=== PATIENT | female | born 1985 | race Caucasian/White ===

== ENCOUNTER 2017-12-13 03:57 | Inpatient (IN) | payer BC, MEDICAID ==
[2017-12-13] MEDS ORDERED: Sodium Citrate/Citric Acid* 15 ML UDC PO ONE (04:41)
[2017-12-13] MEDS ORDERED: ceFOXitin 2 GM IVPREMIX* 2 GM/50 ML BAG IVPB ONE (04:41)
[2017-12-13] MEDS ORDERED: fentaNYL* 50 MCG/ML 2 ML VIAL (100 MCG VIAL) ONE (05:17)
[2017-12-13] MEDS ORDERED: KETAMINE HCL* 50 MG/ML 10 ML VIAL ONE (05:17)
[2017-12-13] MEDS ORDERED: Midazolam* 1 MG/ML 5 ML VIAL (5 MG) ONE (05:17)
[2017-12-13] MEDS ORDERED: Morphine PF AMP (0.5MG/ML)* 5 MG/10 ML AMP ONE (05:18)
[2017-12-13 05:31] LABS: ABS Neutrophils 7.6 10^3/ul (1.5-7.7); Hematocrit 37 % (35-47); Mean Corpuscular HGB Conc 33 g/dl (31-36); Mean Corpuscular Hemoglobin 24 pg (27-31); Mean Corpuscular Volume 73 fL (80-97); Mean Platelet Volume 7.7 um3 (7.4-10.4); Platelet Count 212 10^3/ul (150-450); Red Blood Count 5.07 10^6/ul (4.00-5.40); Red Cell Distribution Width 16 % (10.5-15)
[2017-12-13 05:38] LABS: ABS Basophils 0 10^3/ul (0-0.2); ABS Eosinophils 0.1 10^3/ul (0-0.6); ABS Lymphocytes 1.7 10^3/ul (1.0-4.8); ABS Monocytes 0.5 10^3/ul (0-0.8); ABS Nucleated RBC 0 10^3/ul; Eosinophil % 0.8 % (0-6); Lymphocyte % 17.1 % (25-47); Nucleated Red Blood Cells % 0.1
[2017-12-13] MEDS ORDERED: Scopolamine 1.5 mg* PATCH TRANSDERM PRN (05:51)
[2017-12-13] MEDS ORDERED: Ondansetron INJ* 2 MG/ML VIAL IV PRN (05:51)
[2017-12-13] MEDS ORDERED: PROCHLORPERAZINE INJ 5 MG/ML 2 ML VIAL IV PRN (05:51)
[2017-12-13] MEDS ORDERED: Naloxone* 0.4 MG/ML 1 ML VIAL IV PRN ×2 (05:51→05:52)
[2017-12-13] MEDS ORDERED: oxyCODONE/Acetamin 5/325 MG* TAB PO PRN ×2 (05:51→07:27)
[2017-12-13] MEDS ORDERED: Nalbuphine* 10 MG/ML 1 ML VIAL IV PRN (05:51)
[2017-12-13] MEDS ORDERED: diPHENhydraMINE IV* 50 MG/ML 1 ml VIAL (BENADRYL) IV PRN (05:51)
[2017-12-13] MEDS ORDERED: DiMENhydriNATE IV* 50 MG/ML VIAL IV PUSH PRN (05:51)
[2017-12-13] MEDS ORDERED: Naloxone* 2 MG in NS 0.9% 250 ML* 250 ML IV PRN (05:51)
[2017-12-13] MEDS ORDERED: fentaNYL* 50 MCG/ML 2 ML VIAL (100 MCG VIAL) IV PRN (05:52)
--- NOTE | 2017-12-13 05:52 | HP ---
General Information - Reason for Visit Pt started having contractions around midnight, now every 3min, getting stronger. No LOF or bleeding. Good FM - General Information Maternal Age: 32 Grav: 3 Para: 1 SAB: 1 IEA: 0 Estimated Due Date: 12/22/17 Determined By: Early Ultrasound Maternal Blood Type and Rh: O Positive - Results this Serology/RPR Result: Non-Reactive Rubella Result: Non-Immune HBsAg Result: Negative HIV Result: Negative GBS Culture Result: Positive Past Medical History Delivery History: Hx C/Section Pertinent Past Medical History: See Records Pertinent Past Surgical History: See Records Pertinent Family History: Non-Contributory - Antepartal Records Antepartal Records: Reviewed, Complicated by: - hyperthyroidism - well controlled Review of Systems Constitutional: Uncomfortable CV Complaint: No Respiratory: Shortness of Breath: No Gastrointestinal: No Nausea/Vomiting Genitourinary: No Dysuria, No Bleeding, No Leaking Fluid Musculoskeletal: Contractions Movement: Normal Exam Allergies/Adverse Reactions: Allergies Penicillins Allergy (Unknown, Verified 12/13/17 05:11) Rash codeine Adverse Reaction (Unknown, Verified 12/13/17 05:11) Nausea Lab Values - Entire Visit: Laboratory Tests 12/13/17 12/13/17 04:55 04:55 WBC 10.0 RBC 5.07 Hgb 12.0 Hct 37 MCV 73 L MCH 24 L MCHC 33 RDW 16 H Plt Count 212 MPV 7.7 Neut % (Auto) 76.4 Lymph % (Auto) 17.1 L Sac % (Auto) 5.4 Eos % (Auto) 0.8 Baso % (Auto) 0.3 Absolute Neuts (auto) 7.6 Absolute Lymphs (auto) 1.7 Absolute Monos (auto) 0.5 Absolute Eos (auto) 0.1 Absolute Basos (auto) 0 Absolute Nucleated RBC 0 Nucleated RBC % 0.1 Blood Type O Positive - Measurements Height: 5 ft 7 in Weight: 187 lb Weight in lbs: 187.125129 Body Mass Index (BMI): 29.2 Pre- Weight: 143 lb Weight Gained This : 44 lbs and 0 ozs - Exam Breast: Breast Exam Deferred Heart: Normal Rhythm/Heart Sounds HEENT: No Significant Findings - Abdominal Exam Abdomen Exam: Non-Tender - Ultrasound/Biophysical Profile Ultrasound Status: Not Done Targeted Exam Findings Cervical Exam: 3cm Effacement: 90% Station: -2 Presenting Part: Vertex Membrane Status: Intact EFM Findings - External Monitor Findings Baseline Heart Rate: 140 External Monitor Findings: Accelerations Present, No Pattern of Variable or Late Decelerations, Variability Moderate, Baseline Stable Contractions: Regular - q3-4min Assessment/Plan - Assessment @38.5wks with 2 prior CS, in labor, desires RCS. - Obstetrical Risk Factors Obstetrical Risk Factors: GBS Positive, Previous C/Section in Labor - Plan Plan: C/S Delivery
[2017-12-13] MEDS ORDERED: Scopolamine 1.5 mg* PATCH ONE (06:05)
[2017-12-13] MEDS ORDERED: Bupivacaine-MPF SPINAL* 7.5 MG/ML - 2ML AMP ONE (06:13)
[2017-12-13] MEDS ORDERED: Dexamethasone IV* 4 MG/ML 1 ML (4 MG) ONE (06:13)
[2017-12-13] MEDS ORDERED: OXYTOCIN* 10 UNITS/ML 1 ML VIAL ONE (06:13)
[2017-12-13] MEDS ORDERED: Bupivacaine 0.25% SDV PF* 10 ML VIAL INJ ONE (06:13)
[2017-12-13] MEDS ORDERED: Phenylephrine INJ* 10 MG/ML 1 ML VIAL (10 MG) ONE (06:13)
[2017-12-13] MEDS ORDERED: Ondansetron INJ* 2 MG/ML VIAL ONE (06:13)
[2017-12-13] MEDS ORDERED: EPHEDrine (Pressors)* 50 MG/ML VIAL ONE (06:13)
[2017-12-13] MEDS ORDERED: Glycerin ADULT SUPP PR PRN (07:27)
[2017-12-13] MEDS ORDERED: Zolpidem TAB* 5 MG PO PRN (07:27)
[2017-12-13] MEDS ORDERED: Witch Hazel PAD* JAR TOPICAL PRN (07:27)
[2017-12-13] MEDS ORDERED: Dibucaine 1% 28.35 GM TUBE PR PRN (07:27)
[2017-12-13] MEDS: Simethicone TAB* 80 MG TAB.CHEW PO SCH ×3 (08:22→20:52)
[2017-12-13] MEDS: Docusate CAP* 100 MG PO SCH ×3 (08:22→20:52)
[2017-12-13] MEDS: Ibuprofen TAB* 600 MG PO PRN ×2 (14:19→20:52)
--- NOTE | 2017-12-13 23:33 | OP ---
DATE OF OPERATION: 12/13/17 - ROOM #102 DATE OF : 83 SURGEON: Jennifer Oconnor MD ELEMENTARY MATH TUTOR: Dr. Stevenson. PRE-OP DIAGNOSES: Intrauterine gestation at 38 and 5 weeks' gestational age, labor, prior section x2. POST-OP DIAGNOSES: Intrauterine gestation at 38 and 5 weeks' gestational age, labor, prior section x2. OPERATIVE PROCEDURE: Repeat lower transverse section. FINDINGS: Male infant, weight 6 pounds 12 ounces, Apgars 8 and 9. Normal- appearing uterus, ovaries, and tubes. Normal-appearing placenta. ESTIMATED BLOOD LOSS: 700. FLUIDS: Crystalloid. DRAINS: Tran catheter. COUNTS: All correct. DESCRIPTION OF PROCEDURE: After informed consent was signed, the patient was taken to the operating room where she was given spinal anesthesia that was found to be adequate. SCDs were placed on her legs and a Tran catheter was introduced into her bladder. The patient was prepped and draped in a dorsal supine position with a leftward tilt. A time-out was then performed. A Pfannenstiel skin incision was made with a scalpel and carried down to the underlying layer of fascia with the Cueva scissors. The fascia was incised on either side of the midline with the scalpel and the incision extended laterally with Cueva scissors. The inferior edge of the fascial incision was grasped with Porsha clamps, tented up, and dissected down with sharp dissection. Then, the superior edge of the fascial incision was grasped with Porsha clamps, tented up , and dissected down with sharp dissection and the scalpel was used to make an incision in the fat and scar tissue between the rectus muscles. This was then entered bluntly and then incision extended laterally with sharp dissection. A small filmy adhesion from the uterus to the anterior wall was taken down with sharp dissection. A bladder blade was inserted and transverse incision was made in the lower uterine segment with the scalpel. The incision was extended superiorly and inferiorly with blunt pressure and the 's head was delivered with fundal pressure followed by the shoulders and the rest of the body. The cord was milked towards the baby and then clamped x2 and cut, and the baby was handed to the capital campaign fundraiser. Cord blood was collected. The placenta delivered with fundal massage and gentle cord traction. The uterus was exteriorized and cleared of clots and debris. The uterine incision was closed with 0 Vicryl in a running locked fashion with the second layer of suture imbricating the first. The abdomen was irrigated and the uterus was placed back into the abdominal cavity. The incision was inspected and good hematosis was noted along the length of the incision. The peritoneum was then closed with 0 Vicryl in a running unlocked fashion. The fascia was closed with 0 Vicryl in a running unlocked fashion. Subcuticular layer was irrigated and the skin was closed with 4-0 Monocryl in a running subcuticular fashion. Mastisol and Steri-Strips were placed. The patient was cleaned and dressing was placed. She was moved to the stretcher and taken to the recovery room in stable condition. [id number]/CPS #: [id number] MTDD
[2017-12-14] MEDS: Ibuprofen TAB* 600 MG PO PRN ×3 (05:02→18:02)
[2017-12-14 07:39] LABS: ABS Basophils 0 10^3/ul (0-0.2); ABS Eosinophils 0.1 10^3/ul (0-0.6); ABS Monocytes 0.6 10^3/ul (0-0.8); ABS Neutrophils 6.4 10^3/ul (1.5-7.7); ABS Nucleated RBC 0 10^3/ul; Eosinophil % 0.8 % (0-6); Hematocrit 27 % (35-47); Lymphocyte % 21.8 % (25-47); Mean Corpuscular HGB Conc 33 g/dl (31-36); Mean Corpuscular Hemoglobin 24 pg (27-31); Mean Corpuscular Volume 73 fL (80-97); Mean Platelet Volume 7.6 um3 (7.4-10.4); Nucleated Red Blood Cells % 0; Platelet Count 163 10^3/ul (150-450); Red Blood Count 3.74 10^6/ul (4.00-5.40); Red Cell Distribution Width 16 % (10.5-15); White Blood Count 9.1 10^3/ul (3.5-10.8)
[2017-12-14] MEDS: Docusate CAP* 100 MG PO SCH ×3 (08:18→20:37)
[2017-12-14] MEDS: Simethicone TAB* 80 MG TAB.CHEW PO SCH ×4 (08:18→20:37)
[2017-12-14] MEDS: Ferrous Gluconate TAB* 324 MG TAB PO SCH ×2 (08:18→20:37)
[2017-12-14] MEDS: Acetaminophen TAB* 325 MG PO PRN ×2 (08:18→16:24)
[2017-12-14] MEDS: Methimazole TAB* 5 MG PO SCH (10:15)
[2017-12-14] MEDS: oxyCODONE/Acetamin 5/325 MG* TAB PO PRN ×2 (12:35→21:36)
[2017-12-15] MEDS: Ibuprofen TAB* 600 MG PO PRN ×4 (02:43→23:04)
[2017-12-15] MEDS: oxyCODONE/Acetamin 5/325 MG* TAB PO PRN ×3 (04:14→20:02)
[2017-12-15] MEDS: Ferrous Gluconate TAB* 324 MG TAB PO SCH ×2 (10:00→20:01)
[2017-12-15] MEDS: Docusate CAP* 100 MG PO SCH ×3 (10:01→20:01)
[2017-12-15] MEDS: Methimazole TAB* 5 MG PO SCH (10:01)
[2017-12-15] MEDS: Simethicone TAB* 80 MG TAB.CHEW PO SCH ×4 (10:04→20:02)
[2017-12-16] MEDS: Ibuprofen TAB* 600 MG PO PRN (05:35)
[2017-12-16] MEDS ORDERED: Scopolamine PATCH Remove* 1 NOTE MISC PATCH OFF PRN (05:51)
[2017-12-16 08:09] VITALS: BP 118/78
[2017-12-16] MEDS: Simethicone TAB* 80 MG TAB.CHEW PO SCH (09:10)
[2017-12-16] MEDS: Methimazole TAB* 5 MG PO SCH (09:11)
[2017-12-16] MEDS: Ferrous Gluconate TAB* 324 MG TAB PO SCH (09:11)
[2017-12-16] MEDS: Docusate CAP* 100 MG PO SCH (09:15)
== END 2017-12-16 11:55 | disposition home or self-care (01) | DRG 540 ==
LOC: MCHOBOUT 03:57 → MCHOB 04:41
PROVIDERS: ADMIT Obstetrics & Gynecology; ATTEND Obstetrics & Gynecology
PROC: 4A1HXCZ Monitoring of Products of Conception, Cardiac Rate, External Approach (ICD-10-PCS; 2017-12-13)
PROC: 10D00Z1 Extraction of Products of Conception, Low, Open Approach (ICD-10-PCS; principal; 2017-12-13 05:35)
DX: O34.211 Maternal care for low transverse scar from previous cesarean delivery (principal); Z88.0 Allergy status to penicillin; Z88.5 Allergy status to narcotic agent; O99.824 Streptococcus B carrier state complicating childbirth; O99.284 Endocrine, nutritional and metabolic diseases complicating childbirth; E05.90 Thyrotoxicosis, unspecified without thyrotoxic crisis or storm; Z3A.38 38 weeks gestation of pregnancy; Z37.0 Single live birth; O90.81 Anemia of the puerperium
CPT/HCPCS: 36415; 85025; 86850; 86900; 86901; A9270-GY; J0694; J1100; J2250; J2405; J2590; J3010; J3490